=== PATIENT | male | born 1990 | race Caucasian/White ===

== ENCOUNTER 2018-04-03 16:10 | Emergency (ER) | payer SELFPAY ==
[2018-04-03 16:22] VITALS: BP 150/87; PULSE 96; TEMP 98.4; BMI 38.7
--- NOTE | 2018-04-03 16:55 | PDOC ---
History of Present Illness - General Chief Complaint: Pain, Acute Stated Complaint: SHOULDER PAIN Time Seen by Provider: 04/03/18 16:25 History Source: Patient Exam Limitations: No Limitations - History of Present Illness Initial Comments: 04/03/18 17:02 HISTORY OF PRESENT ILLNESS: 28-year-old male denies medical history presents emergency Department for evaluation of left axillary pain for the past 2 weeks. Patient reports his pain 2/10 and describes as a soreness. Patient was concerned that she felt there was some's swelling in the axilla as well as to the left breast and nipple. He denies any direct trauma, fevers, chills, shortness of breath, cough, heavy lifting. No recent travel or sick contacts. PAST MEDICAL HISTORY: Denies past medical history SURGICAL HISTORY: Denies ALLERGIES: No known drug allergies REVIEW OF SYSTEMS General/Constitutional: Denies fever or chills. Denies weakness, weight change. HEENT: Denies change in vision. Denies ear pain or discharge. Denies sore throat. Cardiovascular: Denies chest pain or shortness of breath. Respiratory: Denies cough, wheezing, or hemoptysis. Gastrointestinal: Denies nausea, vomiting, diarrhea or constipation. Denies rectal bleeding. Genitourinary: Denies dysuria, frequency, or change in urination. Musculoskeletal: see HPI Skin and breasts: Denies rash or easy bruising. Neurologic: Denies headache, vertigo, loss of consciousness, or loss of sensation. Psychiatric: Denies depression or anxiety. Endocrine: Denies increased thirst. Denies abnormal weight change. Hematologic/Lymphatic: Denies anemia, easy bleeding, or history of blood clots. Allergic/Immunologic: Denies hives or skin allergy. Denies latex allergy. PHYSICAL EXAM General Appearance: Well-appearing, appropriately dressed. No apparent distress , no intoxication. HEENT: EOMI, PERRLA, normal ENT inspection, normal voice, TMs normal, pharynx normal. No conjunctival pallor. No photophobia, scleral icterus. Neck: Supple. Trachea midline. No tenderness, rigidity, carotid bruit, stridor , lymphadenopathy, or thyromegaly. Respiratory/Chest: Lungs CTAB. No shortness of breath, chest tenderness, respiratory distress, accessory muscle use. No crackles, rales, rhonchi, stridor , wheezing, dullness Cardiovascular: RRR. S1, S2. No JVD, murmur, bradycardia, tachycardia. Vascular Pulses: Dorsalis-Pedis (R): 2+, Dorsalis-Pedis (L): 2+ Gastrointestinal/Abdominal: Normal bowel sounds. Abdomen soft, non-distended. No tenderness or rebound tenderness. No organomegaly, pulsatile mass, guarding, hernia, hepatomegaly, splenomegaly. Lymphatic: 3 palpable lymph nodes present in the left axilla. No other lymphadenopathy noted throughout the body. Musculoskeletal/Extremities: Normal inspection. FROM of all extremities, normal capillary refill. Pelvis Stable. No CVA tenderness. No tenderness to extremities, pedal edema, swelling, erythema or deformity. No tenderness to pectoral muscles bilaterally. No masses or growths palpated to the left breast tissue, nipple and into the axilla. Integumentary: Appropriate color, dry, warm. No cyanosis, erythema, jaundice or rash Neurologic: care companion II-XII intact. Fully oriented, alert. Appropriate mood/affect. Motor strength 5/5. No appreciable EOM palsy, facial droop or sensory deficit. Past History - Past Medical History Allergies/Adverse Reactions: Allergies Allergy/AdvReac Type Severity Reaction Status Date / Time No Known Allergies Allergy Verified 04/03/18 16:18 Home Medications: Ambulatory Orders Ibuprofen [Motrin -] 600 mg PO TID PRN 04/03/18 Asthma: Yes COPD: No - Suicide/Smoking/Psychosocial Hx Smoking History: Never smoked Have you smoked in the past 12 months: No Hx Alcohol Use: No Drug/Substance Use Hx: No Substance Use Type: None *Physical Exam - Vital Signs Last Vital Signs Temp Pulse Resp BP Pulse Ox 98.4 F 96 H 18 150/87 100 04/03/18 16:21 04/03/18 16:21 04/03/18 16:21 04/03/18 16:21 04/03/18 16:21 Moderate Sedation - Procedure Monitoring Vital Signs: Procedure Monitoring Vital Signs Temperature 98.4 F 04/03/18 16:21 Pulse Rate 96 H 04/03/18 16:21 Respiratory Rate 18 04/03/18 16:21 Blood Pressure 150/87 04/03/18 16:21 O2 Sat by Pulse Oximetry (%) 100 04/03/18 16:21 ED Treatment Course - LABORATORY CBC & Chemistry Diagram: 04/03/18 17:00 04/03/18 17:00 Medical Decision Making - Medical Decision Making 04/03/18 17:05 A/P: 28-year-old male with left chest tenderness Differential diagnosis includes but not limited to AR, pneumonia, musculoskeletal pain, subacute infection, occult infection, neoplasm CBC with differential CMP Cardiac profile Chest x-ray EKG Reassess 04/03/18 18:43 Laboratory testing is unremarkable. EKG shows sinus rhythm with a rate of 106. Intervals are normal. No ischemic changes present. Chest x-rays read by me: Angles clear. Cardiac silhouette is within normal limits. No focal infiltrates or consolidations are present I will discharge the patient home to follow-up with primary care. *DC/Admit/Observation/Transfer Diagnosis at time of Disposition: Lymphadenopathy, axillary - Discharge Dispostion Disposition: HOME Condition at time of disposition: Stable Decision to Admit order: No - Referrals Referrals: Josee Chavarria MD [Staff Physician] - - Patient Instructions Additional Instructions: Your EKG and chest x-ray today are normal. Your laboratory testing today is normal. You have been given a referral for Dr. Glasgow who is a family doctor. Please call her office to schedule a visit for continued evaluation of her armpit pain and swelling. Return to emergency department for any new or worsening symptoms. Thank you very much for choosing us to provide your emergent health care needs. - Post Discharge Activity
[2018-04-03 17:51] LABS: BASO % 0.6 % (0-2.0); EOS % 4.4 % (0-4.5); HEMOGLOBIN 17.2 GM/dL (11.7-16.9); LYMPH % 27.9 % (8-40); MCH 30.9 pg (25.7-33.7); MCHC 35.8 g/dl (32.0-35.9); MEAN CELL VOLUME 86.4 fl (80-96); MEAN PLT VOLUME 9.3 fl (7.5-11.1); MONO % 7.4 % (3.8-10.2); NEUT % 59.7 % (42.8-82.8); PLATELET COUNT 282 K/MM3 (134-434); RBC 5.55 M/mm3 (4.00-5.60); RDW 12.7 % (11.9-15.9); WHITE BLOOD COUNT 7.2 K/mm3 (4.0-10.0)
[2018-04-03 18:37] LABS: ALBUMIN 4.7 g/dl (3.4-5.0); ALK PHOS 76 U/L (45-117); ANION GAP 7 MMOL/L (8-16); BILIRUBIN,TOTAL 0.6 mg/dL (0.2-1); BLOOD UREA NITROGEN 14 mg/dL (7-18); CALCIUM 8.9 mg/dL (8.5-10.1); CHLORIDE 105 mmol/L (98-107); CO2 29 mmol/L (21-32); GLUCOSE,RANDOM 102 mg/dL (74-106); POTASSIUM 3.8 mmol/L (3.5-5.1); SGOT/AST 29 U/L (15-37); SGPT/ALT 59 U/L (13-61); SODIUM 140 mmol/L (136-145); TOT PROT 8.1 g/dl (6.4-8.2)
--- NOTE | 2018-04-04 12:12 | EKG ---
Test Reason : Blood Pressure : / mmHG Vent. Rate : 106 BPM Atrial Rate : 106 BPM P-R Int : 132 ms QRS Dur : 084 ms QT Int : 318 ms P-R-T Axes : 072 029 038 degrees QTc Int : 422 ms SINUS TACHYCARDIA OTHERWISE NORMAL ECG NO PREVIOUS ECGS AVAILABLE Confirmed by CARO FORRESTER MD ([id number]) on 04/04/2018 12:11:58 PM Referred By: MARIA L Confirmed By:CARO FORRESTER MD
== END 2018-04-03 18:45 | disposition home or self-care (01) ==
LOC: JERFT 16:10
DX: R59.0 Localized enlarged lymph nodes (principal)
CPT/HCPCS: 36415; 71046-TC-FY; 80053; 82550; 82553; 84484; 85025; 93005; 93010; 99281-25

== ENCOUNTER 2022-07-02 11:51 | Emergency (ER) | payer OTHER ==
[2022-07-02 12:06] VITALS: BP 168/83; RESP 22; TEMP 98; BMI 37.6
[2022-07-02] MEDS ORDERED: SODIUM CHLORIDE 0.9% 500 ML INFUS.BAG IV ONE (13:01)
[2022-07-02 13:55] LABS: BASO % 0.6 % (0-2.0); HEMATOCRIT 43.1 % (35.4-49); HEMOGLOBIN 15.3 GM/dL (11.7-16.9); LYMPH % 21.5 % (8-40); MCH 29.9 pg (25.7-33.7); MCHC 35.4 g/dl (32.0-35.9); MEAN CELL VOLUME 84.6 fl (80-96); MEAN PLT VOLUME 9.4 fl (7.5-11.1); MONO % 7.7 % (3.8-10.2); NEUT % 67.2 % (42.8-82.8); PLATELET COUNT 261 10^3/uL (134-434); WHITE BLOOD COUNT 7.3 K/mm3 (4.0-10.0)
[2022-07-02 14:09] LABS: POTASSIUM 4.7 mmol/L (3.5-5.1)
[2022-07-02 14:11] LABS: CALCIUM 9.3 mg/dL (8.5-10.1)
[2022-07-02 14:12] LABS: ALBUMIN 4.2 g/dl (3.4-5.0); BLOOD UREA NITROGEN 11.7 mg/dL (7-18)
[2022-07-02 14:15] LABS: CREATININE 0.7 mg/dL (0.55-1.3)
[2022-07-02 14:17] LABS: BILIRUBIN,TOTAL 0.5 mg/dL (0.2-1); TOT PROT 7.7 g/dl (6.4-8.2)
[2022-07-02 14:53] VITALS: PULSE 98
[2022-07-02 15:23] LABS: PH,URINE 5.5 (5.0-8.0); URINE APPEARANCE CLEAR; URINE BILIRUBIN NEGATIVE (NEGATIVE); URINE COLOR YELLOW; URINE GLUCOSE (UA) 1+ (NEGATIVE); URINE KETONE NEGATIVE (NEGATIVE); URINE LEUK ESTERASE NEGATIVE (NEGATIVE); URINE NITRITE NEGATIVE (NEGATIVE); URINE PROTEIN NEGATIVE (NEGATIVE); URINE UROBILINOGEN 0.2 mg/dL (0.2-1.0)
== END 2022-07-02 16:04 | disposition home or self-care (01) ==
LOC: JER 11:51
DX: R10.33 Periumbilical pain (principal)
CPT/HCPCS: 36415; 80053; 81003; 83690; 83735; 85025; 87086; 99283-25